=== PATIENT | female | born 1940 | race Caucasian/White ===

== ENCOUNTER 2017-01-02 11:53 | Day surgery (SDC) | payer OTHER ==
[~2017-01-02] VITALS: Ht 149.9 cm; Wt 90.8 kg
[~2017-01-02 11:53] MED LIST: AMLO-147 PO; ENAL20TA77 PO; METO100T PO; OMEP20CA16 PO; PARO10OR PO; PRAV40TA76 PO; [UNRECOGNIZED DRUG - CODE] PO
[2017-01-02 13:08] VITALS: Ht 149.9 cm; Wt 90.8 kg
[2017-01-02] MEDS ORDERED: MIDAZOLAM 1 MG/ML 2 ML INJ ONE (15:29)
[2017-01-02] MEDS ORDERED: PROPOFOL 20 ML ONE (15:29)
[2017-01-02] MEDS ORDERED: LIDOCAINE 2% (SDV) 5 ML INJ ONE (15:29)
[2017-01-02 15:36] VITALS: BP 116/63; PULSE 83; RESP 18
[2017-01-02 16:15] VITALS: BP 118/74; PULSE 82; RESP 18
--- NOTE | 2017-01-02 16:44 | GILP ---
DATE OF PROCEDURE: 01/02/2017 NAME OF PROCEDURE: Colonoscopy with polyp ablation, plus localization tattoo. PREMEDICATION: Monitored anesthesia care by the anesthesiologist. SURGEON: Amada Eagle. INSTRUMENT USED: Olympus colonoscope. PREPARATION: Adequate. TECHNIQUE: After informed consent, with the patient/relatives understanding the procedure, its indic ations potential risks and complications, including but not limited to: allergic reaction, bleeding, perforation, infection, missed lesions and after all pertinent questions were answered to the patie nt's satisfaction, the patient/relatives signed the witnessed informed consent. Following this, premedication was administered slowly IV push by under careful cardiovascular and re spiratory monitoring with pulse oximetry, automatic blood pressure and secured entrance monitor. Once the sedativ e effect was achieved, the patient was placed in the left lateral decubitus position, digital rectal examination was performed. The colonoscope was then introduced and advanced under visual control th roughout all segments of the colon including: the rectum, sigmoid, descending colon, splenic flexure , transverse colon, hepatic flexure, ascending colon and finally reaching the cecum which was clearl y identified by transillumination, finger indentation and the ileocecal valve. Careful examination o f the mucosa of the lower gastrointestinal tract both on insertion as well as withdrawal of the inst rument disclosed the following findings: FINDINGS: Rectal Examination: No evidence of perirectal disease, no masses. Colonic findings: The colonic mucosa was remarkable for mild diverticulosis in the sigmoid colon. The remainder of colonic mucosa was unremarkable. An 8-mm sessile polyp was noted in the proximal as cending colon. It was ablated with biopsy forceps in a piecemeal fashion and a localization tattoo w as applied. The ileocecal valve was clearly identified and appeared unremarkable. The instrument was withdrawn, reexamining the mucosa in detail. No additional abnormalities were noted, with exception of modera te sized internal hemorrhoids. The instrument was then withdrawn, the patient tolerated the procedure well and was transferred out of the [facility] awake and in good condition to continue recovery under observation. IMPRESSION: 1. An 8-mm sessile polyp in the proximal ascending colon, ablated. Plus localization tattoo applied . 2. Mild sigmoid diverticulosis. 3. Moderate sized internal hemorrhoids. PLAN: The patient will follow up as an outpatient. Pathology will be reviewed as soon as available . Early reevaluation in one year is advisable, pending review of pathology. Dictated By: AMADA DELCID Conf#: [id number] DID#: [id number]
== END 2017-01-02 16:16 | disposition home or self-care (01) ==
LOC: GIL 11:53
PROVIDERS: ATTEND Internal Medicine Gastroenterology
DX: D12.2 Benign neoplasm of ascending colon (principal); K57.90 Diverticulosis of intestine, part unspecified, without perforation or abscess without bleeding; K64.8 Other hemorrhoids; I25.2 Old myocardial infarction; I10 Essential (primary) hypertension; E78.5 Hyperlipidemia, unspecified
CPT/HCPCS: 45380; 45381; 88305; J2250; Z7610